=== PATIENT | female | born 1950 | race Caucasian/White ===

== ENCOUNTER 2016-07-22 13:51 | Emergency (ER) | payer MEDICARE, OTHER ==
[~2016-07-22 13:51] MED LIST: AMARYL 2MG TABLE2 MG PO; ASPIR-LOW81 MG PO; CLOPIDOGREL75 MG PO; COMBIVENT0.074 GM/I INH; DULOXETINE HCL60 MG PO; FUROSEMIDE40 MG PO; KLONOPIN TAB 00.5 MG PO; LEVEMIR 10100 UNITS/ SQ; LISINOPRIL2.5 MG PO; LISINOPRIL5 MG PO; LOPRESSOR 50 MG50 MG PO; LORTAB 5-325 M1 EACH PO; LOVASTATIN20 MG PO; LOVASTATIN40 MG PO; NEURONTIN 300300 MG PO; NOVOLOG 10100 UNITS/ INJ; NOVOLOG 10100 UNITS/ SQ; PLAVIX 75 MG TA75 MG PO; PRECOSE 50 MG T50 MG PO; PRINIVIL20 MG PO; PRINIVIL5 MG PO; RANITIDINE HCL150 M1 PO; TENORMIN 50 MG50 MG PO; TRULICITY1.5 MG/0.5 SQ; TYLENOL 325MG325 MG PO; TYLENOL 500 MG500 MG PO; VOLTAREN100 GM TP; ZANTAC150 MG PO
[2016-07-22 14:23] LABS: HEMOGLOBIN 10.9 gm/dl (12.3-15.3); RED BLOOD COUNT 4.32 M/UL (4.00-5.10)
== END 2016-07-22 19:20 | disposition home or self-care (01) ==
LOC: ER1 13:51
PROVIDERS: Emergency Medicine
DX: E10.22 Type 1 diabetes mellitus with diabetic chronic kidney disease (principal); E10.649 Type 1 diabetes mellitus with hypoglycemia without coma; N18.6 End stage renal disease; J44.9 Chronic obstructive pulmonary disease, unspecified; F17.200 Nicotine dependence, unspecified, uncomplicated; Z88.2 Allergy status to sulfonamides; Z95.1 Presence of aortocoronary bypass graft; Z79.4 Long term (current) use of insulin; Z79.02 Long term (current) use of antithrombotics/antiplatelets; Z79.84 Long term (current) use of oral hypoglycemic drugs; Z79.891 Long term (current) use of opiate analgesic
CPT/HCPCS: 36415; 71010; 80053; 81001; 82550; 82553; 82962; 83874; 84484; 85025; 87086; 96374; 99285

== ENCOUNTER 2020-07-01 09:48 | Inpatient (IN) | payer MEDICARE, OTHER ==
[~2020-07-01] VITALS: Ht 157.5 cm; Wt 68.4 kg
[~2020-07-01 09:48] MED LIST changes: +ABILIFY 2 MG TAB2 MG PO; +BREO ELLIPTA 11 EACH INH; +BREO INH; +INCRUSE ELLI62.5 MCG INH; +ISOSORBIDE MON120 MG PO; +KENALOG CR 0.0215 GM EXT; +LASIX40 MG PO; +LEVEMIR FL100 UNIT/1 SQ; +NORVASC10 MG PO; +OXCARBAZEPINE300 MG PO; +TESSALON PERLE100 MG PO; +VENTOLIN HFA 66.7 GM INH; +VIBRAMYCIN100 MG PO
[2020-07-01 10:55] LABS: HEMOGLOBIN 10.4 gm/dl (12.3-15.3); RED BLOOD COUNT 3.71 M/UL (4.00-5.10); WHITE BLOOD COUNT 22.4 K/UL (4.5-11.0)
[2020-07-01] MEDS ORDERED: LEVEMIR100 UNIT/1 SQ (11:19)
[2020-07-01] MEDS ORDERED: KLONOPIN TAB 00.5 MG PO (11:24)
[2020-07-01] MEDS ORDERED: GABAPENTIN300 MG PO (12:57)
[2020-07-01] MEDS ORDERED: LOVASTATIN40 MG PO (12:57)
[2020-07-01] MEDS ORDERED: REMERON 15 MG T15 MG PO (12:57)
[2020-07-01] MEDS ORDERED: SINGULAIR10 MG PO (12:57)
[2020-07-01] MEDS ORDERED: FLONASE 0.05% N16 GM (12:58)
[2020-07-01] MEDS ORDERED: TRELEGY ELLIPT1 EACH INH (12:58)
[2020-07-01] MEDS ORDERED: PROTONIX40 MG PO (12:59)
[2020-07-01] MEDS ORDERED: HYDROCODON-ACE1 EAC6 PO (13:01)
[2020-07-02 08:54] LABS: HEMOGLOBIN 9.5 gm/dl (12.3-15.3); RED BLOOD COUNT 3.41 M/UL (4.00-5.10); WHITE BLOOD COUNT 21.2 K/UL (4.5-11.0)
[2020-07-03 02:31] LABS: HEMOGLOBIN 8.5 gm/dl (12.3-15.3); RED BLOOD COUNT 3.09 M/UL (4.00-5.10); WHITE BLOOD COUNT 14.4 K/UL (4.5-11.0)
[2020-07-04 04:02] LABS: HEMOGLOBIN 9.8 gm/dl (12.3-15.3); WHITE BLOOD COUNT 14.3 K/UL (4.5-11.0)
[2020-07-04 04:17] LABS: RED BLOOD COUNT 3.59 M/UL (4.00-5.10)
[2020-07-05 04:57] LABS: HEMOGLOBIN 10.7 gm/dl (12.3-15.3); RED BLOOD COUNT 3.9 M/UL (4.00-5.10); WHITE BLOOD COUNT 15.5 K/UL (4.5-11.0)
[2020-07-06 05:24] LABS: HEMOGLOBIN 9.7 gm/dl (12.3-15.3); RED BLOOD COUNT 3.52 M/UL (4.00-5.10); WHITE BLOOD COUNT 13.9 K/UL (4.5-11.0)
[2020-07-07 05:04] LABS: HEMOGLOBIN 9.8 gm/dl (12.3-15.3); RED BLOOD COUNT 3.61 M/UL (4.00-5.10)
[2020-07-07 05:05] LABS: WHITE BLOOD COUNT 10.2 K/UL (4.5-11.0)
[2020-07-07 09:14] LABS: HBSAG SCREEN Negative (Negative); HEP A AB, IGM Negative (Negative); HEP B CORE AB, IGM Negative (Negative); HEP C VIRUS AB <0.1 (0.0-0.9)
[2020-07-08 05:26] LABS: HEMOGLOBIN 9.6 gm/dl (12.3-15.3); RED BLOOD COUNT 3.5 M/UL (4.00-5.10)
[2020-07-09 04:54] LABS: HEMOGLOBIN 8.6 gm/dl (12.3-15.3); RED BLOOD COUNT 3.18 M/UL (4.00-5.10)
[2020-07-09 05:04] LABS: WHITE BLOOD COUNT 4.8 K/UL (4.5-11.0)
[2020-07-10 04:48] LABS: RED BLOOD COUNT 3.3 M/UL (4.00-5.10); WHITE BLOOD COUNT 5.9 K/UL (4.5-11.0)
[2020-07-11 04:38] LABS: HEMOGLOBIN 8.7 gm/dl (12.3-15.3); RED BLOOD COUNT 3.21 M/UL (4.00-5.10)
[2020-07-11 04:43] LABS: WHITE BLOOD COUNT 3.6 K/UL (4.5-11.0)
[2020-07-12 05:15] LABS: HEMOGLOBIN 8.5 gm/dl (12.3-15.3); RED BLOOD COUNT 3.15 M/UL (4.00-5.10)
[2020-07-12 05:25] LABS: WHITE BLOOD COUNT 9.2 K/UL (4.5-11.0)
[2020-07-13 05:39] LABS: RED BLOOD COUNT 3.29 M/UL (4.00-5.10)
[2020-07-13 05:40] LABS: WHITE BLOOD COUNT 13.3 K/UL (4.5-11.0)
[2020-07-14 09:02] LABS: RED BLOOD COUNT 2.93 M/UL (4.00-5.10); WHITE BLOOD COUNT 14.3 K/UL (4.5-11.0)
[2020-07-15 05:35] LABS: HEMOGLOBIN 7.6 gm/dl (12.3-15.3); RED BLOOD COUNT 2.81 M/UL (4.00-5.10)
[2020-07-16 03:16] LABS: WHITE BLOOD COUNT 18.5 K/UL (4.5-11.0)
[2020-07-16 03:17] LABS: HEMOGLOBIN 9.9 gm/dl (12.3-15.3); RED BLOOD COUNT 3.53 M/UL (4.00-5.10)
--- NOTE | 2020-07-16 16:01 | NUR ---
07/16/20 1600 SPOKE TO AXLE AND FRAME MECHANIC ABOUT FAMILY COMING TO SEE PATIENT. DR. BROWN TALKED TO PATIENTS FAMILY ABOUT HER CONDITION AND PROGNOSIS AND THEY ASKED IF TWO OF THEM COULD COME SEE THE PATIENT FOR A BRIEF TIME TO FACILITATE MAKING A DECISION ON PATIENT TREATMENT/CODE STATUS. KATALINA STATED THAT TWO FAMILY MEMBERS COULD COME UP AND GO INTO THE PATIENTS ROOM FOR 15 MINUTES MAXIMUM WITH PPE
[2020-07-18 04:35] LABS: HEMOGLOBIN 10.4 gm/dl (12.3-15.3); RED BLOOD COUNT 3.72 M/UL (4.00-5.10); WHITE BLOOD COUNT 20.8 K/UL (4.5-11.0)
[2020-07-19 04:32] LABS: HEMOGLOBIN 9.3 gm/dl (12.3-15.3); WHITE BLOOD COUNT 18.5 K/UL (4.5-11.0)
[2020-07-19 05:04] LABS: RED BLOOD COUNT 3.27 M/UL (4.00-5.10)
[2020-07-20 07:27] LABS: RED BLOOD COUNT 3.21 M/UL (4.00-5.10)
[2020-07-21 04:52] LABS: HEMOGLOBIN 9.3 gm/dl (12.3-15.3); RED BLOOD COUNT 3.31 M/UL (4.00-5.10)
[2020-07-21 04:57] LABS: WHITE BLOOD COUNT 15.6 K/UL (4.5-11.0)
--- NOTE | 2020-07-22 01:58 | NUR ---
ATTEMPTED IV START X1 UNSUCCESSFUL, BJ ASK ANOTHER NURSE TO TRY
--- NOTE | 2020-07-22 02:11 | NUR ---
CHANGED TUBE FEEDING CONTAINER
--- NOTE | 2020-07-22 02:33 | NUR ---
IRINEO RAND ATTEMPTED IV X2, UNSUCCESSFUL.
[2020-07-22 03:10] LABS: HEMOGLOBIN 8.9 gm/dl (12.3-15.3); RED BLOOD COUNT 3.16 M/UL (4.00-5.10)
[2020-07-22 03:11] LABS: WHITE BLOOD COUNT 10.8 K/UL (4.5-11.0)
[2020-07-23 06:43] LABS: RED BLOOD COUNT 3.56 M/UL (4.00-5.10); WHITE BLOOD COUNT 16.3 K/UL (4.5-11.0)
[2020-07-24 07:01] LABS: HEMOGLOBIN 8.4 gm/dl (12.3-15.3)
[2020-07-24 07:03] LABS: RED BLOOD COUNT 3.01 M/UL (4.00-5.10)
--- NOTE | 2020-07-24 23:35 | NUR ---
AT 2200 I CALLED PATIENT'S DAUGHTER TO INFORM OF CONDITION CHANGE. I ASKED PATIENT'S FAMILY TO COME TO THE HOSPITAL SOON POSSIBLE. At 2200 I called daughter back because Dr Dunlap wanted to speak with her.
--- NOTE | 2020-07-24 23:52 | NUR ---
[facility] NOTIFIED THAT FAMILY IS REQUESTING THEIR SERVICES.
--- NOTE | 2020-07-25 00:06 | NUR ---
AT APPROXIMATELY 1999 I STARTED NEPRO TUBE FEEDING BACK AND FLUSHED DOBHOFF WITH 120CC WATER. NO S/S ANY DISTRESS. O2 SAT 100%. WARM BLANKET PLACED ON PATIENT AND ROOM THERMOSTAT INCREASED FOR COMFORT.
== END 2020-07-24 21:55 | disposition expired | DRG 871 ==
LOC: ER1 09:48 → 2 EAST 12:26 → CCU 12:26 → MED SURG 4 12:26 → CDU 12:26 → CCU 20:04 → 2 EAST 07-10 18:54 → MED SURG 4 07-20 14:50
PROVIDERS: Internal Medicine; Internal Medicine Nephrology; Internal Medicine Pulmonary Disease; Physician Assistant Medical; Student in an Organized Health Care Education/Training Program; ADMIT Internal Medicine
PROC: B24BZZZ Ultrasonography of Heart with Aorta (ICD-10-PCS; 2020-07-01)
PROC: 05HM33Z Insertion of Infusion Device into Right Internal Jugular Vein, Percutaneous Approach (ICD-10-PCS; 2020-07-05)
PROC: B543ZZA Ultrasonography of Right Jugular Veins, Guidance (ICD-10-PCS; 2020-07-05)
PROC: XW13325 Transfusion of Convalescent Plasma (Nonautologous) into Peripheral Vein, Percutaneous Approach, New Technology Group 5 (ICD-10-PCS; 2020-07-10)
PROC: XW033E5 Introduction of Remdesivir Anti-infective into Peripheral Vein, Percutaneous Approach, New Technology Group 5 (ICD-10-PCS; 2020-07-10)
PROC: 8E0ZXY6 Isolation (ICD-10-PCS; 2020-07-10)
PROC: 5A1D70Z Performance of Urinary Filtration, Intermittent, Less than 6 Hours Per Day (ICD-10-PCS; principal; 2020-07-13)
PROC: 0BH17EZ Insertion of Endotracheal Airway into Trachea, Via Natural or Artificial Opening (ICD-10-PCS; 2020-07-13)
PROC: 5A1935Z Respiratory Ventilation, Less than 24 Consecutive Hours (ICD-10-PCS; 2020-07-13)
PROC: 30233N1 Transfusion of Nonautologous Red Blood Cells into Peripheral Vein, Percutaneous Approach (ICD-10-PCS; 2020-07-15)
PROC: 0JH63XZ Insertion of Tunneled Vascular Access Device into Chest Subcutaneous Tissue and Fascia, Percutaneous Approach (ICD-10-PCS; 2020-07-24)
PROC: 05HM33Z Insertion of Infusion Device into Right Internal Jugular Vein, Percutaneous Approach (ICD-10-PCS; 2020-07-24)
PROC: B513ZZA Fluoroscopy of Right Jugular Veins, Guidance (ICD-10-PCS; 2020-07-24)
PROC: 3E033XZ Introduction of Vasopressor into Peripheral Vein, Percutaneous Approach (ICD-10-PCS; 2020-07-24)
DX: A41.89 Other specified sepsis (principal); E11.10 Type 2 diabetes mellitus with ketoacidosis without coma; U07.1 COVID-19; J12.82 Pneumonia due to coronavirus disease 2019; J15.8 Pneumonia due to other specified bacteria; J80 Acute respiratory distress syndrome; R65.21 Severe sepsis with septic shock; N17.0 Acute kidney failure with tubular necrosis; I21.A1 Myocardial infarction type 2; G93.41 Metabolic encephalopathy; N18.6 End stage renal disease; I50.43 Acute on chronic combined systolic (congestive) and diastolic (congestive) heart failure; I13.0 Hypertensive heart and chronic kidney disease with heart failure and stage 1 through stage 4 chronic kidney disease, or unspecified chronic kidney disease; E87.2 Acidosis; J44.0 Chronic obstructive pulmonary disease with (acute) lower respiratory infection; J44.1 Chronic obstructive pulmonary disease with (acute) exacerbation; E87.1 Hypo-osmolality and hyponatremia; I07.1 Rheumatic tricuspid insufficiency; E11.22 Type 2 diabetes mellitus with diabetic chronic kidney disease; F17.210 Nicotine dependence, cigarettes, uncomplicated; I25.10 Atherosclerotic heart disease of native coronary artery without angina pectoris; E11.40 Type 2 diabetes mellitus with diabetic neuropathy, unspecified; G89.29 Other chronic pain; G47.00 Insomnia, unspecified; F32.9 Major depressive disorder, single episode, unspecified; F41.9 Anxiety disorder, unspecified; R74.01 Elevation of levels of liver transaminase levels; R00.0 Tachycardia, unspecified; R00.1 Bradycardia, unspecified; D64.9 Anemia, unspecified; E87.6 Hypokalemia; E83.42 Hypomagnesemia; R57.0 Cardiogenic shock; I25.5 Ischemic cardiomyopathy; E11.649 Type 2 diabetes mellitus with hypoglycemia without coma; R13.10 Dysphagia, unspecified; I45.10 Unspecified right bundle-branch block; E11.21 Type 2 diabetes mellitus with diabetic nephropathy; K21.9 Gastro-esophageal reflux disease without esophagitis; E78.5 Hyperlipidemia, unspecified; Z85.3 Personal history of malignant neoplasm of breast; Z99.81 Dependence on supplemental oxygen; Z95.1 Presence of aortocoronary bypass graft; Z79.4 Long term (current) use of insulin; Z90.49 Acquired absence of other specified parts of digestive tract; Z88.2 Allergy status to sulfonamides; Z88.8 Allergy status to other drugs, medicaments and biological substances; Z79.02 Long term (current) use of antithrombotics/antiplatelets; Z79.82 Long term (current) use of aspirin; Z79.899 Other long term (current) drug therapy; Z95.5 Presence of coronary angioplasty implant and graft; Z82.49 Family history of ischemic heart disease and other diseases of the circulatory system; Z83.3 Family history of diabetes mellitus; Z80.9 Family history of malignant neoplasm, unspecified; Z99.2 Dependence on renal dialysis
CPT/HCPCS: ECHO; 0240U; 31500; 36415; 36430; 36600; 71045; 74018; 77001; 80048; 80053; 80074; 81001; 82009; 82436; 82533; 82550; 82553; 82728; 82803; 82947; 82962; 83036; 83540; 83550; 83605; 83735; 83874; 83880; 83935; 84100; 84133; 84300; 84439; 84443; 84484; 84550; 85025; 85027; 85379; 85610; 85730; 86140; 86850; 86900; 86901; 86920; 86927; 87040; 87070; 87077; 87086; 87186; 87205; 90471; 90935; 90937; 92526; 92610; 92950; 93005; 93306; 94002; 94003; 94640; 94660; 94664; 94760; 96365; 96366; 96367; 96368; 96375; 97110; 97161; 97166; 97530; 97530-GP-CQ; 99285; C1750; C1751; C1752; C1769; J0171; J0456; J0461; J0696; J1100; J1160; J1644; J1756; J1940; J2001; J2020; J2060; J2185; J2250; J2270; J2405; J2543; J2704; J3475; J7030; J7040; J7070; J7120; P9016; P9047; Q5105; U0002; U0003